=== PATIENT | female | born 1930 | race Caucasian/White ===

== ENCOUNTER → 2017-10-16 | Outpatient (CLI) | payer MEDICARE ==
[~2017-10-16] MED LIST: ACET500 PO; ALBU3IS INH; AMLO5 PO; Antivert25 MG PO; BISA10S PR; BUDE6HFA INH; Colace100 MG PO; DIPH50 PO; DOCU100 PO; Flonase 0.05% N16 GM; HYDACE25S PR; HYDCHL25 PO; LEVSOD50 PO; LIDO700A20 TOP; LIDOCAINE PAIN1 EACH TOP; Lisinopril2.5 MG; MIRALAX17 GM PO; ONDA4 PO; OXYGEN; Percocet 5-3251 EACH PO; Prednisone20 MG PO; Prilosec20 MG PO; TRAZ50 PO; Ventolin/Prove6.7 GM INH; XARELTO15 MG PO
== END | disposition home or self-care (01) ==
LOC: LAB SHORT 13:49 → PLD 13:49
DX: C43.4 Malignant melanoma of scalp and neck (principal)
CPT/HCPCS: 88305; 88342

== ENCOUNTER → 2017-10-31 | Outpatient (CLI) | payer MEDICARE | END | disposition home or self-care (01) | LOC: LAB SHORT 13:31 → PLD 13:31 | DX: L82.1 Other seborrheic keratosis (principal); C43.4 Malignant melanoma of scalp and neck | CPT/HCPCS: 88305 ==

== ENCOUNTER 2018-07-13 11:52 | Emergency (ER) | payer MEDICARE ==
[~2018-07-13] VITALS: Ht 162.6 cm; Wt 70.3 kg
[~2018-07-13 11:52] MED LIST changes: -ACET500 PO; -ALBU3IS INH; -AMLO5 PO; -BISA10S PR; -BUDE6HFA INH; -Colace100 MG PO; -DIPH50 PO; -DOCU100 PO; -Flonase 0.05% N16 GM; -LIDO700A20 TOP; -LIDOCAINE PAIN1 EACH TOP; -MIRALAX17 GM PO; -ONDA4 PO; -OXYGEN; -Percocet 5-3251 EACH PO; -Prednisone20 MG PO; -TRAZ50 PO; -Ventolin/Prove6.7 GM INH; -XARELTO15 MG PO
[2018-07-13 12:50] LABS: BASOPHILS ABSOLUTE AUTO 0.05 K/mm3 (0.00-0.23); BASOPHILS PERCENT AUTO 1 % (0-2); EOSINOPHILS PERCENT AUTO 1 % (0-6); IMMATURE GRAN ABSOLUTE AUTO 0.03 K/mm3 (0.00-0.10); IMMATURE GRAN PERCENT AUTO 0 % (0-1); LYMPHOCYTES ABSOLUTE AUTO 3.23 K/mm3 (0.84-5.20); LYMPHOCYTES PERCENT AUTO 34 % (21-46); MONOCYTES ABSOLUTE AUTO 0.66 K/mm3 (0.16-1.47); MONOCYTES PERCENT AUTO 7 % (4-13); Mean Corpuscular HGB 29.8 pg (26.0-34.0); Mean Corpuscular HGB Conc 32.6 g/dL (31.5-36.5); Mean Corpuscular Volume 92 fL (80-100); Mean Platelet Volume 9.5 fL (9.1-12.4); NEUTROPHILS ABSOLUTE AUTO 5.34 K/mm3 (1.96-9.15); NEUTROPHILS PERCENT AUTO 57 % (41-73); Platelet Count 207 K/mm3 (150-400); RDW Standard Deviation 43.8 fL (35.1-46.3); Red Blood Cell Count 5.03 M/mm3 (3.80-5.20); White Blood Cell Count 9.41 K/mm3 (4.00-11.30)
[2018-07-13 13:00] LABS: PCO2 Arterial 34.5 mmHg (35-45); PO2 Arterial 67.9 mmHg (80-100); pH Blood Arterial 7.45 (7.35-7.45)
[2018-07-13 13:08] LABS: Alanine Aminotransfer (ALT/SGP 19 U/L (12-78); Albumin, Blood 3.6 g/dL (3.4-5.0); Albumin/Globulin Ratio 0.9 (0.8-1.8); Alk Phos 90 U/L (50-136); Anion Gap 9 mmol/L (6-16); Aspartate Aminotrans (AST/SGOT 18 U/L (12-37); Bilirubin, Total 0.6 mg/dL (0.1-1.0); Blood Urea Nitrogen 16 mg/dL (8-24); Bun/Creatinine Ratio 16.2 (12.0-20.0); CO2, Blood 23 mmol/L (21-32); Calcium, Blood 8.8 mg/dL (8.5-10.1); Chloride, Blood 107 mmol/L (98-108); Creatinine, Blood 0.99 mg/dL (0.40-1.00); Globulin, Blood 4.2 g/dL (2.2-4.0); Glomerular Filtration Rate 57 (60-); Glucose, Blood 91 mg/dL (70-99); Sodium, Blood 139 mmol/L (136-145); Total Protein, Blood 7.8 g/dL (6.4-8.2); Troponin I <0.015 ng/mL (0.000-0.040)
== END 2018-07-13 16:10 | disposition home or self-care (01) ==
LOC: ER 11:52
PROVIDERS: Emergency Medicine
DX: R09.02 Hypoxemia (principal); Z88.5 Allergy status to narcotic agent; Z88.8 Allergy status to other drugs, medicaments and biological substances; Z79.899 Other long term (current) drug therapy; J45.909 Unspecified asthma, uncomplicated
CPT/HCPCS: 36415; 36600; 71046; 80053; 82803; 83880; 84484; 85025; 93005; 93010

== ENCOUNTER 2018-09-27 14:39 | Emergency (ER) | payer MEDICARE ==
[~2018-09-27] VITALS: Ht 157.5 cm; Wt 68.0 kg
[~2018-09-27 14:39] MED LIST changes: +ACET500 PO; +ALBU3IS INH; +AMLO5 PO; +BISA10S PR; +BUDE6HFA INH; +Colace100 MG PO; +DIPH50 PO; +DOCU100 PO; +LIDO700A20 TOP; +LIDOCAINE PAIN1 EACH TOP; +MIRALAX17 GM PO; +ONDA4 PO; +OXYGEN; +Percocet 5-3251 EACH PO; +Prednisone20 MG PO; +TRAZ50 PO; +Ventolin/Prove6.7 GM INH; +XARELTO15 MG PO
[2018-09-27] MEDS ORDERED: Flonase 0.05% N16 GM (15:06)
== END 2018-09-27 17:22 | disposition home or self-care (01) ==
LOC: ER 14:39
DX: I82.4Z1 Acute embolism and thrombosis of unspecified deep veins of right distal lower extremity (principal); S22.31XD Fracture of one rib, right side, subsequent encounter for fracture with routine healing; S27.1XXD Traumatic hemothorax, subsequent encounter; I26.99 Other pulmonary embolism without acute cor pulmonale; J44.9 Chronic obstructive pulmonary disease, unspecified; I10 Essential (primary) hypertension; Z88.8 Allergy status to other drugs, medicaments and biological substances; Z91.09 Other allergy status, other than to drugs and biological substances; Z88.5 Allergy status to narcotic agent; Z79.899 Other long term (current) drug therapy
CPT/HCPCS: 71046; 93970; 99284-25

== ENCOUNTER → 2019-07-29 | Outpatient (CLI) | payer MEDICARE ==
[~2019-07-29] MED LIST changes: +Flonase 0.05% N16 GM
[2019-07-29 17:07] LABS: BASOPHILS ABSOLUTE AUTO 0.06 K/mm3 (0.00-0.23); BASOPHILS PERCENT AUTO 1 % (0-2); EOSINOPHILS ABSOLUTE AUTO 0.09 K/mm3 (0.00-0.68); EOSINOPHILS PERCENT AUTO 1 % (0-6); Hematocrit 47.9 % (33.0-51.0); Hemoglobin 15.7 g/dL (11.5-16.0); IMMATURE GRAN ABSOLUTE AUTO 0.02 K/mm3 (0.00-0.10); IMMATURE GRAN PERCENT AUTO 0 % (0-1); LYMPHOCYTES ABSOLUTE AUTO 3.45 K/mm3 (0.84-5.20); LYMPHOCYTES PERCENT AUTO 38 % (21-46); MONOCYTES ABSOLUTE AUTO 0.56 K/mm3 (0.16-1.47); MONOCYTES PERCENT AUTO 6 % (4-13); Mean Corpuscular HGB 30.9 pg (26.0-34.0); Mean Corpuscular HGB Conc 32.8 g/dL (31.5-36.5); Mean Corpuscular Volume 94 fL (80-100); NEUTROPHILS ABSOLUTE AUTO 4.86 K/mm3 (1.96-9.15); NEUTROPHILS PERCENT AUTO 54 % (41-73); Platelet Count 280 K/mm3 (150-400); RDW Coefficient Variation 12.9 % (11.7-14.2); RDW Standard Deviation 45.2 fL (35.1-46.3); Red Blood Cell Count 5.08 M/mm3 (3.80-5.20); White Blood Cell Count 9.04 K/mm3 (4.00-11.30)
[2019-07-29 17:31] LABS: Albumin, Blood 3.8 g/dL (3.4-5.0); Albumin/Globulin Ratio 0.9 (0.8-1.8); Bilirubin, Total 0.5 mg/dL (0.1-1.0); Bun/Creatinine Ratio 17.5 (12.0-20.0); Calcium, Blood 9.7 mg/dL (8.5-10.1); Creatinine, Blood 1.03 mg/dL (0.40-1.00); Globulin, Blood 4.2 g/dL (2.2-4.0); Potassium, Blood 4.1 mmol/L (3.5-5.5)
== END | disposition home or self-care (01) ==
LOC: LAB 16:00 → LAB SHORT 16:00
PROVIDERS: Physician Assistant
DX: R10.9 Unspecified abdominal pain (principal); R19.7 Diarrhea, unspecified
CPT/HCPCS: 80053; 83690; 85025; 87086

== ENCOUNTER 2020-10-08 06:00 | Day surgery (SDC) | payer MEDICARE ==
[~2020-10-08] VITALS: Ht 157.5 cm; Wt 68.1 kg
[~2020-10-08 06:00] MED LIST changes: +BENADRYL25 MG PO; -BUDE6HFA INH; +SYMBICORT 160-4.6 GM INH; +XARELTO20 MG PO
== END 2020-10-08 11:09 | disposition home or self-care (01) ==
LOC: MHTC 06:00
PROC: 0JPT0PZ Removal of Cardiac Rhythm Related Device from Trunk Subcutaneous Tissue and Fascia, Open Approach (ICD-10-PCS; principal; 2020-10-08)
PROC: 0JH606Z Insertion of Pacemaker, Dual Chamber into Chest Subcutaneous Tissue and Fascia, Open Approach (ICD-10-PCS; principal; 2020-10-08)
DX: Z45.010 Encounter for checking and testing of cardiac pacemaker pulse generator [battery] (principal); I10 Essential (primary) hypertension; E78.5 Hyperlipidemia, unspecified; I08.1 Rheumatic disorders of both mitral and tricuspid valves; G47.33 Obstructive sleep apnea (adult) (pediatric); Z86.718 Personal history of other venous thrombosis and embolism; Z86.711 Personal history of pulmonary embolism; Z79.01 Long term (current) use of anticoagulants; Z79.899 Other long term (current) drug therapy; Z88.5 Allergy status to narcotic agent; Z88.8 Allergy status to other drugs, medicaments and biological substances; Z91.041 Radiographic dye allergy status
CPT/HCPCS: 33228; 99152; 99153; C1781; C1785; J0690; J1644; J2250; J3010; J7030; J7040

== ENCOUNTER → 2021-03-02 | Outpatient (CLI) | payer MEDICARE | LOC: PLD 15:00 → LAB SHORT 15:00 | DX: D48.5 Neoplasm of uncertain behavior of skin (principal); Z88.8 Allergy status to other drugs, medicaments and biological substances; Z88.5 Allergy status to narcotic agent; Z88.6 Allergy status to analgesic agent; Z91.041 Radiographic dye allergy status | CPT/HCPCS: 88305 ==

== ENCOUNTER 2021-03-28 13:55 | Emergency (ER) | payer MEDICARE ==
[~2021-03-28] VITALS: Ht 157.5 cm; Wt 69.0 kg
== END 2021-03-28 17:00 | disposition home or self-care (01) ==
LOC: ER 13:55
DX: S63.502A Unspecified sprain of left wrist, initial encounter (principal); S50.02XA Contusion of left elbow, initial encounter; I10 Essential (primary) hypertension; J44.9 Chronic obstructive pulmonary disease, unspecified; Z88.5 Allergy status to narcotic agent; Z88.8 Allergy status to other drugs, medicaments and biological substances; Z79.899 Other long term (current) drug therapy; W01.0XXA Fall on same level from slipping, tripping and stumbling without subsequent striking against object, initial encounter
CPT/HCPCS: 29125; 70450; 73080; 73110; 99284-25

== ENCOUNTER → 2021-04-28 | Outpatient (CLI) | payer MEDICARE | END | disposition home or self-care (01) | LOC: LAB SHORT 14:38 | DX: R05 Cough (principal) ==

== ENCOUNTER 2021-05-01 21:15 | Emergency (ER) | payer MEDICARE ==
[~2021-05-01] VITALS: Ht 157.5 cm; Wt 67.1 kg
[2021-05-01 21:58] LABS: BASOPHILS ABSOLUTE AUTO 0.05 K/mm3 (0.00-0.23); BASOPHILS PERCENT AUTO 1 % (0-2); EOSINOPHILS ABSOLUTE AUTO 0.17 K/mm3 (0.00-0.68); EOSINOPHILS PERCENT AUTO 2 % (0-6); Hematocrit 42.3 % (33.0-51.0); IMMATURE GRAN ABSOLUTE AUTO 0.01 K/mm3 (0.00-0.10); IMMATURE GRAN PERCENT AUTO 0 % (0-1); LYMPHOCYTES PERCENT AUTO 36 % (21-46); MONOCYTES ABSOLUTE AUTO 0.63 K/mm3 (0.16-1.47); MONOCYTES PERCENT AUTO 8 % (4-13); Mean Corpuscular HGB 30.2 pg (26.0-34.0); Mean Corpuscular HGB Conc 33.1 g/dL (31.5-36.5); Mean Corpuscular Volume 91 fL (80-100); Mean Platelet Volume 9.7 fL (9.1-12.4); NEUTROPHILS ABSOLUTE AUTO 4.36 K/mm3 (1.96-9.15); NEUTROPHILS PERCENT AUTO 54 % (41-73); Platelet Count 227 K/mm3 (150-400); RDW Coefficient Variation 13.3 % (11.7-14.2); RDW Standard Deviation 45.1 fL (35.1-46.3); Red Blood Cell Count 4.63 M/mm3 (3.80-5.20); White Blood Cell Count 8.12 K/mm3 (4.00-11.30)
[2021-05-01 22:16] LABS: Albumin, Blood 3.5 g/dL (3.4-5.0); Albumin/Globulin Ratio 0.9 (0.8-1.8); Bilirubin, Total 0.6 mg/dL (0.1-1.0); Bun/Creatinine Ratio 14.8 (12.0-20.0); Calcium, Blood 9.3 mg/dL (8.5-10.1); Creatinine, Blood 0.95 mg/dL (0.40-1.00); Globulin, Blood 4.1 g/dL (2.2-4.0); Potassium, Blood 4.3 mmol/L (3.5-5.5); Total Protein, Blood 7.6 g/dL (6.4-8.2)
== END 2021-05-02 02:17 | disposition home or self-care (01) ==
LOC: ER 21:15
PROVIDERS: Physician Assistant
DX: R05 Cough (principal); J44.9 Chronic obstructive pulmonary disease, unspecified; Z79.899 Other long term (current) drug therapy; Z88.8 Allergy status to other drugs, medicaments and biological substances; Z88.5 Allergy status to narcotic agent; Z88.1 Allergy status to other antibiotic agents; Z79.01 Long term (current) use of anticoagulants
CPT/HCPCS: 36415; 71046; 80053; 85025; 93005; 93010; 99284-25

== ENCOUNTER → 2021-06-28 | Outpatient (CLI) | payer MEDICARE | LOC: LAB SHORT 15:55 | DX: N39.0 Urinary tract infection, site not specified (principal) | CPT/HCPCS: 87077; 87086; 87186 ==

== ENCOUNTER → 2021-09-19 | Outpatient (CLI) | payer MEDICARE | END | disposition home or self-care (01) | LOC: LAB SHORT 15:45 → LAB 15:45 | DX: R30.0 Dysuria (principal) | CPT/HCPCS: 87086 ==

== ENCOUNTER → 2021-10-23 | Outpatient (CLI) | payer MEDICARE | END | disposition home or self-care (01) | LOC: LAB SHORT 17:55 | DX: R10.9 Unspecified abdominal pain (principal) | CPT/HCPCS: 87086 ==

== ENCOUNTER 2022-02-19 19:10 | Inpatient (IN) | payer MEDICARE ==
[~2022-02-19] VITALS: Ht 157.5 cm; Wt 65.5 kg
[2022-02-19 19:49] LABS: BASOPHILS ABSOLUTE AUTO 0.04 K/mm3 (0.00-0.23); BASOPHILS PERCENT AUTO 0 % (0-2); EOSINOPHILS ABSOLUTE AUTO 0.09 K/mm3 (0.00-0.68); EOSINOPHILS PERCENT AUTO 1 % (0-6); Hematocrit 44.6 % (33.0-51.0); Hemoglobin 14.6 g/dL (11.5-16.0); IMMATURE GRAN ABSOLUTE AUTO 0.03 K/mm3 (0.00-0.10); IMMATURE GRAN PERCENT AUTO 0 % (0-1); LYMPHOCYTES ABSOLUTE AUTO 1.57 K/mm3 (0.84-5.20); LYMPHOCYTES PERCENT AUTO 17 % (21-46); MONOCYTES ABSOLUTE AUTO 0.76 K/mm3 (0.16-1.47); MONOCYTES PERCENT AUTO 8 % (4-13); Mean Corpuscular HGB 30.1 pg (26.0-34.0); Mean Corpuscular HGB Conc 32.7 g/dL (31.5-36.5); Mean Corpuscular Volume 92 fL (80-100); Mean Platelet Volume 9.5 fL (9.1-12.4); NEUTROPHILS ABSOLUTE AUTO 6.71 K/mm3 (1.96-9.15); NEUTROPHILS PERCENT AUTO 73 % (41-73); Platelet Count 191 K/mm3 (150-400); RDW Coefficient Variation 13.1 % (11.7-14.2); RDW Standard Deviation 44.3 fL (35.1-46.3); Red Blood Cell Count 4.85 M/mm3 (3.80-5.20)
[2022-02-19 20:09] LABS: Albumin, Blood 3.4 g/dL (3.4-5.0); Albumin/Globulin Ratio 0.8 (0.8-1.8); Bilirubin, Total 0.6 mg/dL (0.1-1.0); Bun/Creatinine Ratio 16.8 (12.0-20.0); Calcium, Blood 9.3 mg/dL (8.5-10.1); Creatinine, Blood 1.07 mg/dL (0.40-1.00); Globulin, Blood 4.2 g/dL (2.2-4.0); Potassium, Blood 4.3 mmol/L (3.5-5.5); Total Protein, Blood 7.6 g/dL (6.4-8.2)
[2022-02-19 20:40] LABS: Influenza A, PCR NEGATIVE (NEGATIVE); Influenza B, PCR NEGATIVE (NEGATIVE); Resp Syncytial Virus, PCR NEGATIVE (NEGATIVE); SARS-Cov-2 (COVID-19) PCR, MMC NEGATIVE (NEGATIVE)
[2022-02-19] MEDS ORDERED: DONEPEZIL HCL5 M2 PO (22:38)
[2022-02-19] MEDS ORDERED: AMLODIPINE BES2.5 MG PO (22:39)
[2022-02-19 23:56] LABS: Adenovirus Not Detected (NOT DETECT); Bordetella pertussis Not Detected (NOT DETECT); Chlamydophila pneumoniae Not Detected (NOT DETECT); Coronavirus 229E Not Detected (NOT DETECT); Coronavirus HKU1 Not Detected (NOT DETECT); Coronavirus NL63 Not Detected (NOT DETECT); Coronavirus OC43 Not Detected (NOT DETECT); Human Metapneumovirus Not Detected (NOT DETECT); Human Rhinovirus/Enterovirus Detected (NOT DETECT); Influenza A/2009-H1 Not Detected (NOT DETECT); Influenza A/H1 Not Detected (NOT DETECT); Influenza A/H3 Not Detected (NOT DETECT); Influenza B Not Detected (NOT DETECT); Mycoplasma pneumoniae Not Detected (NOT DETECT); Parainfluenza Virus 1 Not Detected (NOT DETECT); Parainfluenza Virus 2 Not Detected (NOT DETECT); Parainfluenza Virus 3 Not Detected (NOT DETECT); Parainfluenza Virus 4 Not Detected (NOT DETECT); Respiratory Syncytial Virus Not Detected (NOT DETECT); SARS-Cov-2 (COVID-19), BioFire Not Detected (NOT DETECT)
--- NOTE | 2022-02-20 01:07 | NUR ---
ADMISSION: REPORT WAS RECIEVED RAJESH SALAZAR RN AND PATIENT WAS RECIEVED FROM ER VIA [facility]. OF URINE. ABLE TO AMB. FROM STRTECHER TO THE BED. NO SOB OBSERVED. THEN AMBULATED TO THE BATHROOM WITH NO SOB. ABLE TO DO ORAL CARE INDEPENDANTLY. VSS 2L [address] PATIENT IS ORIENTED TO ROOM AND CALL LU. HX OF DEMENTIA, A&OX3 FORGETFUL. BED ALARM IS ON
--- NOTE | 2022-02-20 08:30 | NUR ---
SHIFT SUMMARY: PATIENT HAD NO COMPLIANTS THROUGH THE NIGHT. USING CALL LU APPROPRIATLEY FOR ASSIST TO THE BATHROOM TO VOID. IVF INFUSING PER MD ORDER. NO RESPIRATORY DISTRESS OBSERVED THIS SHIFT. MAINTAINING SATS ON 2L VIA NC.
--- NOTE | 2022-02-20 17:37 | NUR ---
SHIFT SUMMARY PT AxOx4 WITH OCCASIONAL FORGETFULNESS. PT PLEASANT AND COOPERATIVE WITH CARE. PT REQUIRING 2L CONT O2 VIA NC TO MAINTAIN O2 SATS. PT DENIES SOB, WEAKNESS OR PAIN. PT WALKING TO BATHROOM WITHOUT DIFFICULTY W/SBA. PT RECIEVING IV STEROIDS AND BREATHING TREATMENTS. UPDATED FAMILY VIA PHONE AND [facility]. VITALS REVIEWED. PT CURRENTLY RESTING IN BED WITH CALL LIGHT IN REACH. DENIES ANY NEEDS AT THIS TIME.
--- NOTE | 2022-02-21 17:50 | NUR ---
SHIFT SUMMARY- PT A/OX 2-3, FORGETFUL AT TIMES. PT PLEASANT AND COOPERATIVE WITH CARE. SBA UP TO BATHROOM. LS CLEAR. OCCASIONAL NON PRODUCTIVE COUGH NOTED. SOB WITH EXERTION. CONT BIOX IN PLACE, 02 SATS NOTED TO BED 87% ON ROOM AIR WITH EXERTION, 89-90% AT REST ON ROOM AND NOTED TO BE 85% ON ROOM AIR WITH SLEEPING, PT PLACED ON 2L 02 WHILE SLEEPING AND UP TO BATHROOM. PT DOES REPORT SOME MILD DIZZINESS AT TIMES WHEN STANDING UP, VSS. NO OTHER ACUTE CHANGES THIS SHIFT.
--- NOTE | 2022-02-22 03:57 | NUR ---
CARE TRANSITIONS NURSE SUMMARY AWAKE AT INTERVALS. WAS CRYING AT SHIFT COMMENCE, VOICED FRUSTRATIONS WITH TRYING TO REMEMBER HOW TO USE THE CALL LIGHT, ETC. REASURRANCE AND REDIRECTIONS GIVEN. O2 PER NC CONTINUES AT 2L/MIN. LATER IN THE SHIFT AFFECT CHEERED UP. NOTED SMILING EACH TIME NURSE CAME IN. CALL LIGHT IN REACH.
--- NOTE | 2022-02-22 17:48 | NUR ---
DAY SHIFT SUMMARY 89 YR OLD FEMALE PT WITH COPD EXACERBATION. PT HAS A PACEMAKER, ON RA. PT LIVES AT [facility] WHO ARE WILLING TO TAKE PT BACK WHEN DISCHARGED FROM HOSPITAL. PT IS STANDBY ASSIST, STEADY ON FEET BUT WANDERS. PT HAS DEMENTIA AND HAS BEEN EMOTIONAL THIS SHIFT, SHE UNDERSTANDS THAT SHE IS FORGETTING AND FEELS THAT SHE LIES TO HERSELF. CALL LIGHT IS WITHIN REACH OF PT AND PT IS ABLE TO CALL APPROPRIATELY MOST OF TIME, FREQUENT ROUNDING TO BE SURE. BED ALARM IN USE.
--- NOTE | 2022-02-22 23:24 | NUR ---
JOINT RUNNER SUMMARY PT W/COPD EXACERBATION. IS A/OX4 BUT FORGETFUL. PLEASANT AND REMENCENT OF PAST FRIENDS THIS EVENING. PT WAS OFF OXYGEN AND SATTING IN THE 80'S; ADMIN 2L O2 NC TO IMPROVE SAT. PT CALL LIGHT IN REACH BUT STATES SHE D/NOT KNOW HOW TO USE IT. REORIENTED HER TO CALL LIGHT.
--- NOTE | 2022-02-22 23:53 | NUR ---
I HVE READ DOCUMENTATION AND WAS WITH STUDENT FOR ASSESSMENT. I AGREE WITH SAID DOCUMENTAITON
--- NOTE | 2022-02-23 17:01 | NUR ---
DAY SHIFT SUMMARY 89 YR OLD FEMALE IN FOR COPD EXACERBATION, 2L O2 NC. PT TO DISCHARGE BACK TO [facility] TOMORROW ON O2. STANDBY ASSIST WITH WALKER. PT IS FORGETFUL AND WANDERS - BED ALARM ON. CALL LIGHT IN REACH WITH FREQUENT ROUNDING. PT ON CONTINIOUS PULSE OX.
--- NOTE | 2022-02-24 04:22 | NUR ---
SHIFT SUMMARY PATIENT HAD NO ACUTE CHANGES. AXOX 3 AND FORGETFUL AT TIMES. SBA WITH FWW TO BR. ON 2L O2 NC AND ROOM AIR BASELINE. INCREASED CONFUSION FIRST PART OF SHIFT. PIV REMAINS INTACT. DENIES CHEST PAIN AND N/V. VSS/AFEBRILE. IV SOLU-MEDROL GIVEN PER EMAR. RT IN ROOM TO CHECK ON CONTINUOUS PULSE OXIMETRY AND RESET IT. CALL LIGHT IN REACH. BED IN LOWEST POSITION. WILL CONTINUE TO MONITOR UNTIL DAY SHIFT NURSE ASSUMES CARE.
--- NOTE | 2022-02-24 08:15 | NUR ---
pt laying in bed, wakes easily, did get up once and thought her family was here and was looking for them, a/ox3, but forgetful, pleasant and cooperative with care, follows commands well, denies pain, lungs have insp wheeze t/o, reports a productive cough of brown sputum, hrr, no edema noted, ppp+1, cap refill <3sec, vs stable, afebrile, iv site to rac is clear and patent, btx4, abd flat soft nontender, voids without diff, skin c/w/d, face is a bit flushed, maew, zonia, call light in reach.
[2022-02-24] MEDS ORDERED: IPRAT-ALBUT 0.5-3 ML INH (13:18)
[2022-02-24] MEDS ORDERED: Deltasone 10 mg10 MG PO (13:21)
[2022-02-24 14:41] LABS: Influenza A, PCR NEGATIVE (NEGATIVE); Influenza B, PCR NEGATIVE (NEGATIVE); Resp Syncytial Virus, PCR NEGATIVE (NEGATIVE); SARS-Cov-2 (COVID-19) PCR, MMC NEGATIVE (NEGATIVE)
--- NOTE | 2022-02-24 15:54 | NUR ---
pt has been discharged back to [facility], [facility] screener was here to see her, iv has been removed intact, med list was faxed to [facility]. transport will be here at 1700 to take her home. went over instructions with her, she verbalized understanding but is very forgetful, so will send all with her.
--- NOTE | 2022-02-24 17:43 | NUR ---
DISCHARGE SUMMARY PATIENT TAKEN VIA WHEELCHAIR WITH O2 TRANSPORT TO [facility]. DISCHARGE PAPERWORK GIVEN TO TRANSPORT.
== END 2022-02-24 17:15 | disposition home health service (06) | DRG 189 ==
LOC: ER 19:10 → MEDS 02-20 00:15
PROVIDERS: Internal Medicine; Student in an Organized Health Care Education/Training Program; ADMIT Internal Medicine
DX: J96.21 Acute and chronic respiratory failure with hypoxia (principal); J45.901 Unspecified asthma with (acute) exacerbation; J44.1 Chronic obstructive pulmonary disease with (acute) exacerbation; Z66 Do not resuscitate; I12.9 Hypertensive chronic kidney disease with stage 1 through stage 4 chronic kidney disease, or unspecified chronic kidney disease; N18.30 Chronic kidney disease, stage 3 unspecified; B34.8 Other viral infections of unspecified site; Z20.822 Contact with and (suspected) exposure to COVID-19; G47.33 Obstructive sleep apnea (adult) (pediatric); G30.9 Alzheimer's disease, unspecified; F02.80 Dementia in other diseases classified elsewhere, unspecified severity, without behavioral disturbance, psychotic disturbance, mood disturbance, and anxiety; G31.84 Mild cognitive impairment of uncertain or unknown etiology; D75.82 Heparin induced thrombocytopenia (HIT); Z95.0 Presence of cardiac pacemaker; Z91.09 Other allergy status, other than to drugs and biological substances; Z86.711 Personal history of pulmonary embolism; Z98.42 Cataract extraction status, left eye; Z98.41 Cataract extraction status, right eye; Z88.1 Allergy status to other antibiotic agents; Z88.5 Allergy status to narcotic agent; Z91.041 Radiographic dye allergy status
CPT/HCPCS: 0202U; 0241U; 36415; 71045; 80053; 83605; 83880; 84145; 84484; 85025; 85379; 87040; 93005; 93010; 94640; 94664; 94667; 94760; 94762; 96374; 96375; 97110; 97116; 97129; 97130; 97162; 97166; 97530; 97535; 98960; 99285-25; A9270; J1885; J2920; J2930; J7030